=== PATIENT | female | born 1965 | race Caucasian/White ===

== ENCOUNTER → 2019-05-27 | Outpatient (CLI) | payer BC ==
[2005-08-16 10:47] VITALS: TEMP 97.9
[~2019-05-27] MED LIST: ALLEGRA 180MG180 MG PO; CELEXA10 MG PO; FISH OIL 1000MG1 CAP PO; MULTI VITAMINS1 TAB PO; NORCO 325 MG-51 TAB PO
== END ==
LOC: MC.RAD 14:45
DX: Z12.31 Encounter for screening mammogram for malignant neoplasm of breast (principal)

== ENCOUNTER 2020-07-10 00:55 | Emergency (ER) | payer BC ==
[~2020-07-10] VITALS: Ht 177.8 cm; Wt 72.7 kg
[2020-07-10 01:04] VITALS: TEMP 98.5
[2020-07-10] MEDS ORDERED: CEPHALEXIN500 M1 PO (03:00)
[2020-07-10 03:25] VITALS: BP 127/83; PULSE 69
== END 2020-07-10 03:27 | disposition home or self-care (01) ==
LOC: COL.ER 00:55
DX: S81.012A Laceration without foreign body, left knee, initial encounter (principal); F41.9 Anxiety disorder, unspecified; Z88.2 Allergy status to sulfonamides; W01.0XXA Fall on same level from slipping, tripping and stumbling without subsequent striking against object, initial encounter; Y92.009 Unspecified place in unspecified non-institutional (private) residence as the place of occurrence of the external cause
CPT/HCPCS: L1830; L1846

== ENCOUNTER 2020-07-12 20:08 | Inpatient (IN) | payer BC ==
[~2020-07-12] VITALS: Ht 177.8 cm; Wt 76.4 kg
[~2020-07-12 20:08] MED LIST changes: +CEPHALEXIN500 M1 PO
[2020-07-12 21:35] LABS: ALBUMIN 4.2 gm/dL (3.5-5.0); BILIRUBIN,TOTAL 0.6 mg/dL (0.0-1.0); C-REACTIVE PROTEIN 6.9 mg/dL (0.0-0.9); CALCIUM 9.5 mg/dL (8.4-10.2); CREATININE, serum 0.74 (0.52-1.25); TOTAL PROTEIN 7.7 gm/dL (6.4-8.2)
[2020-07-12 21:48] LABS: BASO % 0.3 % (0.0-2.0); EOS # 0.1 (0.0-0.7); EOS % 0.9 % (0-4.0); GRAN # 6.3 (1.4-6.5); GRAN % 72.7 % (42.2-75.2); HEMATOCRIT 37.3 % (37.0-47.0); HEMOGLOBIN 13.1 g/dl (12.5-16.0); LYMPH # 1.6 (1.2-3.4); LYMPH % 17.8 % (20.0-51.0); MEAN CELL VOLUME 89 fl (80.0-100.0); MEAN CORPUSCULAR HEMOGLOBIN 31 pg (27.0-31.0); MEAN CORPUSCULAR HGB CONC 35 g/dl (33.0-37.0); MEAN PLATELET VOLUME 9.5 fl (7.4-10.4); MONO # 0.7 (0.1-0.6); PLATELET COUNT 278 K/mm3 (130-400); RED BLOOD COUNT 4.21 M/mm3 (4.10-5.30); REDCELL DISTRIBUTION WIDTH-CV 11.7 % (11.5-14.5)
[2020-07-12 22:27] LABS: ERYTHROCYTE SEDIMENTATION RATE 51 mm/hr (0-30)
--- NOTE | 2020-07-12 22:51 | NUR ---
Vancomycin Initial Dosing Pharmacy Note Ordering provider: William Alcantar MD Indication/duration: SSTI (duration of 5 days) Trough goal: 10-20 Vanco dosing hx: none identified BMI:23.7 Wt: 75 kg SCr: 0.74 estCrCl~102 ml/min t 1/2~ 8 h Pt loaded with vanco 1.5g (20mg/kg) in ED. Will order maintenace regimen of 1.25g q12h to acheive target goals. Will monitor renal function and micro for need to adjust dosing regimen. Thank you for this dosing consult!
[2020-07-12 23:11] VITALS: BP 134/83; PULSE 72; TEMP 99.5
[2020-07-12] MEDS ORDERED: CELEXA40 MG PO (23:35)
--- NOTE | 2020-07-13 00:04 | NUR ---
PT ADMITTED TO SURGICAL UNIT ROMM 349, SECONDARY TO INFECTION IN RIGHT KNEE, DENIES ANY PAIN SOB, OR DISCONFORT. WILL CONTINUE TO ASSESS, MONITOR AND UPDATE PROVIDERS NEEDED.
[2020-07-13 04:39] VITALS: BP 103/67; PULSE 81; TEMP 99.9
[2020-07-13 07:22] VITALS: BP 108/65; PULSE 81; TEMP 98.6
--- NOTE | 2020-07-13 08:08 | NUR ---
Lying in bed with eyes open. Daughter in room with the patient. Denies pain, notices discomfort when up ambulating but nothing painful. Left knee with sutures intact, redness noted and marked on knee and down leg. 1+ edema to left knee. No discharge from incision. Patient questioned getting her Celexa ordered and if she should have something cream or ointment perkins put on knee. Spoke with RADHA Castellanos, and she says that she is going to speak with pharmacist regarding the Celexa as her liver enzymes were a little elevated and when they make rounds they will assess if she needs anything applied topically to area. Patient updated. Denies additional needs at this time
[2020-07-13] MEDS ORDERED: MELATONIN5 M1 PO (08:40)
--- NOTE | 2020-07-13 08:58 | NUR ---
MILLICENT met with the patient and her daughter, Sangeeta, to discuss discharge plan. The patient lives alone in [place]. She reports independence with ADLs and has a knee immobilizer. The patient's PCP is Dr. Sonya Hawley and she receives her medications at [facility]. She reports no difficulties obtaining her meds. The patient does not have a DPOA-HC and she was not interested in completing a DPOA-HC at this time. The patient plans to return home upon discharge. She states that she may be interested and might need crutches when she returns home. MILLICENT asked the hospitalist for PT to be ordered. SW to continue to follow.
--- NOTE | 2020-07-13 10:10 | NUR ---
Patient up in halls with PT ambulating with crutches.
--- NOTE | 2020-07-13 10:52 | NUR ---
First visit from the fire alarm inspector. No needs right now.
--- NOTE | 2020-07-13 11:18 | NUR ---
PT worked with the patient and are recommending crutches. SW collowed up with the patient to inquire where she would like to obtain the crutches from. The patient states that she would like to get the crutches from [facility], if they bill insurance. If not, the patient would be interested in getting the crutches from [facility]. MILLICENT contacted Coleman at [facility]. Coleman reports that they do not bill insurance. MILLICENT contacted and faxed the crutches order to Rubina at [facility]. Awaiting delivery of crutches.
[2020-07-13 11:46] VITALS: BP 143/86; PULSE 87; TEMP 98
--- NOTE | 2020-07-13 11:46 | NUR ---
Sitting up in bed, just finished eating lunch. Denies pain, when up on leg does have some discomfort but not pain, and goes away when she gets off leg. Patient denies any needs or concerns at this time.
--- NOTE | 2020-07-13 14:02 | NUR ---
Mild amunt of pain in left knee when up to bathroom, would like Tylenol. Administer Tylenol as prescribed. Daughter in room with the patient. Denies additional needs.
[2020-07-13 15:24] VITALS: BP 117/83; PULSE 72; TEMP 98.7
--- NOTE | 2020-07-13 15:38 | NUR ---
Lying in bed with eyes open watching TV. Rates pain 4/10 with activity, no pain at rest. Denies any needs or concerns at this time.
--- NOTE | 2020-07-13 19:25 | NUR ---
Pt assessment completed and documented. Pt resting in bed at this time on cell phone. States she is not currently in pain unless she is up walking. Sutures CDI to left knee with 1+ edema and redness that is within markings from previous shift. IVF infusing per orders to left hand IV. Pt denies any other needs at this time. Call light within reach. Will continue to monitor.
[2020-07-13 19:28] VITALS: BP 113/65; PULSE 69; TEMP 98.4
[2020-07-14] VITALS: BP 119/69; PULSE 81; TEMP 99.3
[2020-07-14 04:00] VITALS: BP 122/78; PULSE 74; TEMP 98.4
--- NOTE | 2020-07-14 05:22 | NUR ---
Pt states she slept "hard" overnight. Pt has denied the need for pain medication. IVF infusing per orders. Pt denies any needs/concerns at this time. Call light within reach
[2020-07-14 06:42] LABS: BASO % 0.7 % (0.0-2.0); EOS # 0.1 (0.0-0.7); EOS % 2.1 % (0-4.0); GRAN # 3.4 (1.4-6.5); GRAN % 60.4 % (42.2-75.2); LYMPH # 1.6 (1.2-3.4); LYMPH % 28.8 % (20.0-51.0); MEAN CELL VOLUME 90 fl (80.0-100.0); MEAN CORPUSCULAR HEMOGLOBIN 31 pg (27.0-31.0); MEAN CORPUSCULAR HGB CONC 34 g/dl (33.0-37.0); MEAN PLATELET VOLUME 9.6 fl (7.4-10.4); MONO # 0.4 (0.1-0.6); MONO % 7.6 % (1.7-9.3); PLATELET COUNT 249 K/mm3 (130-400); RED BLOOD COUNT 3.91 M/mm3 (4.10-5.30); REDCELL DISTRIBUTION WIDTH-CV 11.9 % (11.5-14.5)
[2020-07-14 07:01] LABS: CALCIUM 8.9 mg/dL (8.4-10.2); CREATININE, serum 0.74 (0.52-1.25); POTASSIUM 4.4 mmol/L (3.4-5.0)
--- NOTE | 2020-07-14 07:08 | NUR ---
Sitting up in bed with eyes open. Rates pain 4/10 when up moving around, denies at rest. Tylenol was provided at this time. Continues to have redness and edema to left knee, redness has not extended passed the marker line. Area is warm and tender to touch. No abnormal discharge. Sutures intact. Patient denies additional needs at this time.
[2020-07-14 07:11] LABS: HEMATOCRIT 35.2 % (37.0-47.0)
[2020-07-14 08:01] VITALS: BP 117/76; PULSE 74; TEMP 98.5
[2020-07-14] MEDS ORDERED: DOXYCYCLINE 10100 MG PO (10:36)
--- NOTE | 2020-07-14 11:09 | NUR ---
MILLICENT attended clinical rounds. The patient is ready to d/c back home today, 07/14. MILLICENT notified Nicole at [facility]. Nicole reports that the crutches are ready for the patient, but that they will not be able to deliver the crutches until later this afternoon. MILLICENT informed the patient. The patient would like to tow picker the crutches from [facility] after she leaves the hospital. MILLICENT notified Nicole at [facility]. No additional needs at this time.
--- NOTE | 2020-07-14 11:45 | NUR ---
Review all discharge instructions with patient. Denies questions or concerns. Patient signs discharge paperwork. Discharge packet provided to the patient. Patient will use call light when her ride is here to pick her up.
[2020-07-14 11:47] VITALS: BP 138/93; PULSE 66; TEMP 97.8
[2020-07-14 12:41] LABS: ALANINE AMINOTRANSFERASE 188 U/L (4-34); AST,SGOT 75 U/L (15-37)
--- NOTE | 2020-07-14 12:50 | NUR ---
Patient knee covered with bandage per her request so that the air does not get to it. Says she will remove when she gets home. Ride is here to take patient home at this time. Escorted out to friend's POV by SINGH Otto, via wheel chair with all belongings.
== END 2020-07-14 12:50 | disposition home or self-care (01) | DRG 603 ==
LOC: COL.ER 20:08 → SURG 20:40
PROVIDERS: Emergency Medicine; Student in an Organized Health Care Education/Training Program; ADMIT Internal Medicine
DX: L03.116 Cellulitis of left lower limb (principal); F41.9 Anxiety disorder, unspecified; E78.5 Hyperlipidemia, unspecified; Z88.2 Allergy status to sulfonamides
CPT/HCPCS: 99232-AI; 99233-AI; 99239; J1650; J2543; J3370; J7030; J7050

== ENCOUNTER → 2020-12-06 | Outpatient (CLI) | payer SELFPAY ==
[~2020-12-06] MED LIST changes: +CELEXA40 MG PO; +DOXYCYCLINE 10100 MG PO; +MELATONIN5 M1 PO
== END ==
LOC: MC.RAD
DX: Z12.31 Encounter for screening mammogram for malignant neoplasm of breast (principal); N64.89 Other specified disorders of breast

== ENCOUNTER → 2020-12-10 | Outpatient (CLI) | payer OTHER | LOC: MC.RAD 08:00 | DX: N64.89 Other specified disorders of breast (principal); R92.2 Inconclusive mammogram ==

== ENCOUNTER 2021-03-06 03:50 | Emergency (ER) | payer OTHER ==
[~2021-03-06] VITALS: Ht 175.3 cm; Wt 75.0 kg
[2021-03-06 03:55] VITALS: TEMP 98.6
[2021-03-06 05:18] VITALS: BP 119/81; PULSE 89
== END 2021-03-06 05:18 | disposition home or self-care (01) ==
LOC: COL.ER 03:50
DX: S09.90XA Unspecified injury of head, initial encounter (principal); S01.01XA Laceration without foreign body of scalp, initial encounter; F10.129 Alcohol abuse with intoxication, unspecified; W19.XXXA Unspecified fall, initial encounter; W22.8XXA Striking against or struck by other objects, initial encounter

== ENCOUNTER → 2021-03-14 | Outpatient (CLI) | payer OTHER ==
[2021-03-14 20:55] VITALS: BP 143/85; PULSE 73; TEMP 98.4
== END ==
LOC: COL.ER 20:49
DX: Z48.02 Encounter for removal of sutures (principal)